=== PATIENT | female | born 1955 | race Caucasian/White ===

== ENCOUNTER 2017-03-17 11:53 | Emergency (ER) | payer BC, OTHER ==
--- NOTE | 2017-03-17 13:44 | DIAGNOSTIC IMAGING REPORT ---
PROCEDURE: CT HEAD WITHOUT CONTRAST INDICATION: PARESTHESIA RIGHT FACE TECHNIQUE: Axial CT images were acquired through the head. Coronal and sagittal reformations were created. COMPARISON: None. FINDINGS: Minimal cerebral cortical atrophy. A few subtle tiny patches of hypodensity in the right white matter tracts and left basal ganglia. No focal cortical volume loss. No intracranial hemorrhage or extraaxial fluid collections. Ventricles are normal in size, shape and position. There is no mass, mass effect or midline shift. The rock-white matter differentiation is normal. There is no edema. Minimal calcific atherosclerosis of the intracranial internal carotid arteries. The calvarium is intact. The paranasal sinuses and mastoid air cells are normally aerated. The extracranial soft tissues and orbits are normal. IMPRESSION: 1. A few tiny hypodensities in the white matter tracts and deep rock matter, age uncertain, potentially microvascular ischemic changes 2. No acute hemorrhage, edema, or mass effect. 3. Findings discussed with Taya Sebastian in the emergency room at [address] scans at this facility use dose modulation, iterative reconstruction, and/or weight-based dosing when appropriate to reduce radiation dose to as low as reasonably achievable.
--- NOTE | 2017-03-17 13:49 | ED CLINICAL REPORT ---
Clinical Report - Physicians/Mid Levels [facility] [address] [place] [address] 03/17/2017 11:53 Patient: KRISTAN CHAVES Time Seen: 12:08; initial patient contact. Arrived- By private vehicle. Historian- patient. HISTORY OF PRESENT ILLNESS Chief Complaint: PARESTHESIA. pt was at work at [employer] when she began having some tingling to the right face around 10 am. no other symptoms. This started today at 10 AM and is still present but is better now. The patient has had new onset of numbness of the right face (mild). She has had tingling. No impaired speech or swallowing, visual disturbance or recent fall. No difficulty walking. At its maximum deficit described as mild. When seen in the E.D., it was almost gone. No dizziness, altered mental status, seizure or blackouts. Usually is alert and oriented X3 and has normal mobility. Similar symptoms previously: None. Recent medical care: The patient was seen recently at another facility in a clinic. REVIEW OF SYSTEMS No fever, headache, head injury, chest pain or difficulty breathing. No cough or sputum production. All systems otherwise negative, except as recorded above. PAST HISTORY See nurses notes. Problems: Non-Hodgkin's lymphoma (clinical). Hypertension. Cancer. Medications: Losartan Potassium Oral 25 mg, daily. Tamoxifen Citrate Oral. Allergies: IV Contrast. Platelets. FAMILY HISTORY Negative. ADDITIONAL NOTES The nursing notes have been reviewed with agreement regarding the chief complaint, HPI, ROS, PMH and patient medications and allergies. PHYSICAL EXAM Vital Signs: 03/17/2017 11:59 BP: 139/62. HR: 75. RR: 16. O2 saturation: 99%. Temp: 98.4 F. Pain level now: 0/10. Have been reviewed as normal. Appearance: Alert. No acute distress. Head: Head atraumatic. Eyes: Pupils equal, round and reactive to light. No dysconjugate gaze. No nystagmus or nystagmus. ENT: Normal ENT inspection. Airway intact. Pharynx normal. Neck: Normal inspection. Neck supple. CVS: Normal heart rate and rhythm. Heart sounds normal. Pulses normal. Respiratory: No respiratory distress. Breath sounds normal. Abdomen: Soft and nontender. No organomegaly. Back: Normal inspection. No CVA tenderness. Skin: Skin warm and dry. Normal skin color. No rash. Normal skin turgor. Extremities: Extremities exhibit normal ROM. No lower extremity edema. Neuro: Awake. Alert. Alert. Oriented X 3 and 3. Mood/affect normal. Speech normal. No facial weakness. No cerebellar findings. No motor deficit. No sensory deficit. No sensory deficit. No pronator drift. Reflexes normal. (she appears to have a mild right sided tongue deviation on exam, without other focal facial weakness.). LABS, X-RAYS, AND EKG CT Head: (Name: Kristan Chaves : 1955 MR#: [id number] Ordering Provider: JARRELL OLIVER Exam(s): CT HEAD WITHOUT CONTRAST Date of Exam: 03/17/2017 __ PROCEDURE: CT HEAD WITHOUT CONTRAST INDICATION: PARESTHESIA RIGHT FACE TECHNIQUE: Axial CT images were acquired through the head. Coronal and sagittal reformations were created. COMPARISON: None. FINDINGS: Minimal cerebral cortical atrophy. A few subtle tiny patches of hypodensity in the right white matter tracts and left basal ganglia. No focal cortical volume loss. No intracranial hemorrhage or extraaxial fluid collections. Ventricles are normal in size, shape and position. There is no mass, mass effect or midline shift. The rock-white matter differentiation is normal. There is no edema. Minimal calcific atherosclerosis of the intracranial internal carotid arteries. The calvarium is intact. The paranasal sinuses and mastoid air cells are normally aerated. The extracranial soft tissues and orbits are normal. IMPRESSION: 1. A few tiny hypodensities in the white matter tracts and deep rock matter, age uncertain, potentially microvascular ischemic changes 2. No acute hemorrhage, edema, or mass effect. 3. Findings discussed with Jarrell Oliver in the emergency room at [address] scans at this facility use dose modulation, iterative reconstruction, and/or weight-based dosing when appropriate to reduce radiation dose to as low as reasonably achievable. Electronically Final signed by:Chela Carter MD 03/17/2017 1:44:34 PM Technologist: KENDY). Head CT performed without contrast. The study was independently viewed by me, interpreted by the radiologist and discussed with the radiologist. Prior studies were not available for comparison. Interpretation time: 13:45. Laboratory Tests: CBC w Diff: (FATOUMATA: 03/17/2017 12:05) ( MsgRcvd 03/17/2017 12:34) Final results Test Result Flag Units (Reference) WHITE BLOOD COUNT 4.3 L K/uL (4.5-11.5) RED BLOOD COUNT 3.79 L M/uL (4.00-5.20) HEMOGLOBIN 12.1 gm/dL (12.0-16.0) HEMATOCRIT 36.0 % (36.0-46.0) MEAN CELL VOLUME 95 fL (80-100) MEAN CORPUSCULAR HGB 32 pg (26-34) MEAN CORPUSCULAR HGB CONC 34 g/dL (31-37) RED CELL DISTRIBUTION WIDTH 13.9 % (11.6-14.8) PLATELET COUNT 154 K/uL (150-400) NEUTROPHIL % 48.8 L % (50-75) LYMPH % 44.2 H % (25-40) MONO % 5.9 % (3-14) EOSINOPHIL % 0.8 % (0-4) BASOPHIL % 0.3 % (0-2) PT with INR: (FATOUMATA: 03/17/2017 12:05) ( MsgRcvd 03/17/2017 12:35) Final results Test Result Flag Units (Reference) INR 1.0 (0.8-1.2) Low Intensity Therapy: INR 1.5-2.0 PT range 18.5-23.1Mod.Intensity Therapy: INR 2.0-3.0 PT range 23.1-31.5High Intensity Therapy: INR 2.5-3.5 PT range 27.4-35.5High Intensity Therapy 2: INR 3.0-4.0 PT range 31.5-39.3 CMP: (FATOUMATA: 03/17/2017 12:05) ( MsgRcvd 03/17/2017 12:51) Final results Test Result Flag Units (Reference) GLUCOSE 118 H mg/dL (70-110) BUN 17 mg/dL (7-18) CREATININE 0.7 mg/dL (0.6-1.3) Estimated GFR >60 mL/min Estimated GFR- >60 mL/min Note: Persistent reduction over 3 months in eGFR<60 mL/min/1.73 m2 defines CKD. Patients with eGFR values>=60 mL/min/1.73 m2 may also have CKD if evidence ofpersistent proteinuria. Additional information may be foundat [email or web address].org. SODIUM 139 mmol/L (136-145) POTASSIUM 3.8 mmol/L (3.5-5.1) CHLORIDE 99 mmol/L (98-107) CARBON DIOXIDE 33 H mmol/L (21-32) CALCIUM 8.7 mg/dL (8.5-10.1) TOTAL PROTEIN 7.4 g/dL (6.4-8.2) ALBUMIN 3.7 g/dL (3.3-5.0) BILIRUBIN, TOTAL 0.5 mg/dL (0.0-1.0) ALKALINE PHOSPHATASE 47 U/L (46-116) AST (SGOT) 28 U/L (15-37) ALT (SGPT) 28 U/L (12-78) . PROGRESS AND PROCEDURES Course of Care: Patient is stable. Physical exam findings are improved. Symptoms better. 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 INSTRUCTIONS No strenuous activity for two days until better. Return to work in three days when better. Do not work today. No dietary restrictions. Do not smoke. No alcohol. (CT scan was essentially normal and didn't show any acute changes or evidence of stroke. TIA is possible.). Warnings: Further evaluation is necessary in order to conduct further tests. It is very important to follow up with a physician. GENERAL WARNINGS: Return or contact your physician immediately if your condition worsens or changes unexpectedly, if not improving as expected, or if other problems arise. Your Current Medications: CONTINUE TAKING THE FOLLOWING MEDICATIONS: Losartan Potassium Oral : 25 mg daily. Tamoxifen Citrate Oral. OTC Medications: Aspirin 81 mg (available over the counter): take 1-2 orally every 24 hours. Dispense thirty (30). No refills. Follow-up: Follow up with your doctor Sunday if not well. Call for an appointment. Reason for referral: TIA, right facial paresthesia. Follow up with a neurologist- as recommended by your primary care physician- if not better. Reason for referral: right facial paresthesia. Understanding of the discharge instructions verbalized by patient. (Electronically signed by Jarrell Oliver PA-C 03/18/2017 0:34)
--- NOTE | 2017-03-17 13:49 | ED ORDER SUMMARY ---
..... Patient: ASAEL GALICIA OrderSheet [facility] VisitID: [id number] [address] [place] [address] 61y, F Registration Date/Time: 03/17/2017 ORDER SHEET Weight: 51.2 kg (stated) Allergies: IV Contrast, Platelets GENERAL ORDERS: CT Head wo Cont (paresthesia right face with noted tongue deviation towards the right side since 10 am.) Urgent (12:03/17/2017 ABlanchette PA-C) (Ack 12:35 RKaruga) (14:21 Unique R.N.) CBC w Diff Urgent (12:03/17/2017 ABlanchette PA-C) (Ack 12:35 RKaruga) (12:35 Unique R.N.) CMP Urgent (12:03/17/2017 ABlanchette PA-C) (Ack 12:35 RKaruga) (12:35 Unique R.N.) PT with INR Urgent (12:03/17/2017 ABlanchette PA-C) (Ack 12:35 RKaruga) (12:35 Unique R.N.) MEDICATION ORDERS: IV FLUIDS: ORDER SHEET NOTES: [Electronically signed by Rebecca Hernandez R.N. (14:03/17/2017)] [Electronically signed by Taya Sebastian PA-C (00:34 03/18/2017)] [Electronically locked/signed by Rebecca Hernandez R.N. (14:03/17/2017)]
--- NOTE | 2017-03-17 13:49 | ED NURSING NOTES ---
Clinical Report - Nurses [facility] [place] [place] [address] 03/17/2017 11:53 [id number] TRIAGE <<STRICKEN ENTRY-- Triage time 11:59. Acuity: LEVEL 3. Chief Complaint: NUMBNESS and (left half of lips, up into cheek). Alert. No acute distress. QUINCY COMA SCORE: [place] Coma Scale: 15- eyes open spontaneously (4); best verbal response- oriented x 4 (5); best motor response- obeys commands (6). --12:06 Rebecca Hernandez R.N. --END STRIKE>> Correction --12:20 Rebecca Hernandez R.N. 11:59 03/17/17. BP: 139/62. HR: 75. RR: 16. O2 saturation: 99% on room air. Temp: 98.4 F (oral). Pain level now: 0/10. --12:06 Rebecca Hernandez R.N. Triage time 11:59. Acuity: LEVEL 3. Chief Complaint: NUMBNESS and (right half of lips, up into cheek). Alert. No acute distress. QUINCY COMA SCORE: [place] Coma Scale: 15- eyes open spontaneously (4); best verbal response- oriented x 4 (5); best motor response- obeys commands (6). --12:21 Rebecca Hernandez R.N. Weight: 51.2 kg stated. Height/Length: 65 inches Per Patient. BMI: 18.8. --12:02 Rebecca Hernandez R.N. Medications Losartan Potassium Oral 25 mg, daily. Tamoxifen Citrate Oral. --12:00 Rebecca Hernandez R.N. Medication/allergy information source: the patient. --12:06 Rebecca Hernandez R.N. Allergies IV Contrast. --12:00 Rebecca Hernandez R.N. Platelets. --12:00 Rebecca Hernandez R.N. History Arrived by private vehicle. Historian: patient. Unaccompanied. Primary physician (Josue). This started about 1000. ( slowly resolving). PAST MEDICAL HX: The patient is post-menopausal. SOCIAL HX: Former smoker. Occasional alcohol use; consumes wine. No drug use. FALL RISK ASSESSMENT: Fall risk assessment completed. No fall risk identified. FUNCTIONAL ASSESSMENT: Functional assessment: no impairments noted. LEARNING NEEDS ASSESSMENT: The learning needs assessment revealed no barriers. --12:06 Rebecca Hernandez R.N. 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 --12:10 Rebecca Hernandez R.N. PROBLEMS: Non-Hodgkin's lymphoma (clinical). Hypertension. Cancer. --12:02 Rebecca Hernandez R.N. ADDITIONAL SURGERIES: Lumpectomy of breast. --12:02 Rebecca Hernandez R.N. Assessment GENERAL / NEURO / PSYCH: Alert. Oriented X 4. Appears in no acute distress. Patient appears calm and cooperative. RESPIRATORY: Respirations not labored. SKIN: Skin is warm and dry. --12:06 Rebecca Hernandez R.N. Interventions ID and allergy band on patient. To treatment room. --12:06 Rebecca Hernandez R.N. PHYSICAL ASSESSMENT 12:03/17/17. Ambulatory to room. Patient gowned. Baseline functional status: usually alert, oriented x4 and cooperative. Verbal response: usually clear and appropriate. Motor response: usually steady gait and moves all extremities equally GENERAL / NEURO / PSYCH: Awake. Oriented X 4. Alert. Appears in no acute distress. Speech normal. Mood/affect normal. Moves all extremities equally. RESPIRATORY: Respirations not labored. SKIN: Skin is warm and dry. --12:07 Rebecca Hernandez R.N. NURSING PROGRESS NOTES 12:03/17/2017 Site #1 started via IV in the left antecubital space with an 20g angiocath, with aseptic technique and good blood return; one attempt. Blood drawn: rainbow set. Labeled in the presence of the patient and sent to the lab. Saline lock flushed with 10 mL saline (by Asia FERNANDO). --12:08 Rebecca Hernandez R.N. 12:03/17/17. radiation monitor, pulse oximeter and NIBP monitor placed on patient. Patient gowned. Head of bed elevated. Call light placed in reach. Side rails up x 1. Bed placed in lowest position. Brakes of bed on. --12:08 Rebecca Hernandez R.N. 12:10 03/17/2017 Site #1 removed. Catheter intact. Bandaid applied (site infiltrated). --12:10 Rebecca Hernandez R.N. 12:21 03/17/2017 Site #2 started via IV in the right antecubital space with an 20g angiocath, with aseptic technique and good blood return; one attempt. Saline lock flushed with 10 mL saline. --12:21 Rebecca Hernandez R.N. 12:26 03/17/17. Cardiac rhythm: sinus rhythm. The patient is resting quietly. --12:26 Rebecca Hernandez R.N. 12:25 03/17/17. BP: 139/53. HR: 75. RR: 18. O2 saturation: 99% on room air. Pain level now: 0/10. --12:26 Rebecca Hernandez R.N. Patient transported to [place] by stretcher with tech. ([id number]). --13:00 Rebecca Hernandez R.N. Patient returned from CT by stretcher with tech. --13:19 Rebecca Hernandez R.N. 13:19 03/17/17. BP: 123/50. HR: 71. RR: 18. O2 saturation: 98% on room air. Pain level now: 0/10. --13:20 Rebecca Hernandez R.N. 13:20 03/17/17. Cardiac rhythm: sinus rhythm. Reassessment after procedure. She is calm and resting quietly. Overall patient status is the same- she states feels the same (states the "numbness" is mostly just in right lower lip now). GENERAL / NEURO / PSYCH: Alert. Oriented X 4. Affect appears normal. RESPIRATORY: No respiratory distress. SKIN: Skin is warm and dry. --13:20 Rebecca Hernandez R.N. 14:00. Cardiac rhythm: sinus rhythm. The patient is calm and resting quietly. Overall patient status is improved- she states feels better. GENERAL / NEURO / PSYCH: Alert. Oriented X 4. Affect appears normal. RESPIRATORY: No respiratory distress. SKIN: Skin is warm and dry. --14:13 Rebecca Hernandez R.N. 14:00 03/17/2017 Site #2 removed upon discharge. Catheter intact. Bandaid applied. --14:13 Rebecca Hernadnez R.N. DISPOSITION / DISCHARGE Departure time: 1400. Condition at departure: improved and stable. No learning barriers present. Discharge instructions provided and reviewed with the patient. Reviewed medication(s). Prescription(s) given to the patient. Work note given. Patient verbalized understanding. Written instructions provided in Chinese. The patient was discharged home and unaccompanied at time of discharge. She left the Emergency Department ambulatory and via private vehicle. FALL RISK ASSESSMENT: Fall risk assessment completed. No fall risk identified. --14:12 Rebecca Hernandez R.N. 14:00 03/17/17. BP: 118/51. HR: 66. RR: 18. O2 saturation: 97% on room air. Pain level now: 0/10. --14:12 Rebecca Hernandez R.N. Locked/Released at 03/17/2017 14:21 by Rebecca Hernandez R.N.
--- NOTE | 2017-03-17 13:49 | ED NURSING NOTES ---
Clinical Report - Nurses [facility] [place] [address] 03/17/2017 11:53 [id number] <<[facility]ICKEN ENTRY-- Triage time 11:59. Acuity: LEVEL 3. Chief Complaint: NUMBNESS and (left half of lips, up into cheek). Alert. No acute distress. QUINCY COMA SCORE: [place] Coma Scale: 15- eyes open spontaneously (4); best verbal response- oriented x 4 (5); best motor response- obeys commands (6). --12:06 Rebecca Hernandez R.N. --END STRIKE>> Correction --12:20 Rebecca Hernandez R.N. 11:59 03/17/17. BP: 139/62. HR: 75. RR: 16. O2 saturation: 99% on room air. Temp: 98.4 F (oral). Pain level now: 0/10. --12:06 Rebecca Hernandez R.N. Triage time 11:59. Acuity: LEVEL 3. Chief Complaint: NUMBNESS and (right half of lips, up into cheek). Alert. No acute distress. QUINCY COMA SCORE: [place] Coma Scale: 15- eyes open spontaneously (4); best verbal response- oriented x 4 (5); best motor response- obeys commands (6). --12:21 Rebecca Hernandez R.N. Weight: 51.2 kg stated. Height/Length: 65 inches Per Patient. BMI: 18.8. --12:02 Rebecca Hernandez R.N. Medications Losartan Potassium Oral 25 mg, daily. Tamoxifen Citrate Oral. --12:00 Rebecca Hernandez R.N. Medication/allergy information source: the patient. --12:06 Rebecca Hernandez R.N. Allergies IV Contrast. --12:00 Rebecca Hernnadez R.N. Platelets. --12:00 Rebecca Hernandez R.N. History Arrived by private vehicle. Historian: patient. Unaccompanied. Primary physician (Josue). This started about 1000. ( slowly resolving). PAST MEDICAL HX: The patient is post-menopausal. SOCIAL HX: Former smoker. Occasional alcohol use; consumes wine. No drug use. FALL RISK ASSESSMENT: Fall risk assessment completed. No fall risk identified. FUNCTIONAL ASSESSMENT: Functional assessment: no impairments noted. LEARNING NEEDS ASSESSMENT: The learning needs assessment revealed no barriers. --12:06 Rebecca Hernandez R.N. 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 --12:10 Rebecca Hernandez R.N. PROBLEMS: Non-Hodgkin's lymphoma (clinical). Hypertension. Cancer. --12:02 Rebecca Hernandez R.N. ADDITIONAL SURGERIES: Lumpectomy of breast. --12:02 Rebecca Hernandez R.N. Assessment GENERAL / NEURO / PSYCH: Alert. Oriented X 4. Appears in no acute distress. Patient appears calm and cooperative. RESPIRATORY: Respirations not labored. SKIN: Skin is warm and dry. --12:06 Rebecca Hernandez R.N. Interventions ID and allergy band on patient. To treatment room. --12:06 Rebecca Hernandez R.N. PHYSICAL ASSESSMENT 12:03/17/17. Ambulatory to room. Patient gowned. Baseline functional status: usually alert, oriented x4 and cooperative. Verbal response: usually clear and appropriate. Motor response: usually steady gait and moves all extremities equally GENERAL / NEURO / PSYCH: Awake. Oriented X 4. Alert. Appears in no acute distress. Speech normal. Mood/affect normal. Moves all extremities equally. RESPIRATORY: Respirations not labored. SKIN: Skin is warm and dry. --12:07 Rebecca Hernandez R.N. NURSING PROGRESS NOTES 12:03/17/2017 Site #1 started via IV in the left antecubital space with an 20g angiocath, with aseptic technique and good blood return; one attempt. Blood drawn: rainbow set. Labeled in the presence of the patient and sent to the lab. Saline lock flushed with 10 mL saline (by Asia FERNANDO). --12:08 Rebecca Hernandez R.N. 12:03/17/17. monitoring analyst, pulse oximeter and NIBP monitor placed on patient. Patient gowned. Head of bed elevated. Call light placed in reach. Side rails up x 1. Bed placed in lowest position. Brakes of bed on. --12:08 Rebecca Hernandez R.N. 12:10 03/17/2017 Site #1 removed. Catheter intact. Bandaid applied (site infiltrated). --12:10 Rebecca Hernandez R.N. 12:21 03/17/2017 Site #2 started via IV in the right antecubital space with an 20g angiocath, with aseptic technique and good blood return; one attempt. Saline lock flushed with 10 mL saline. --12:21 Rebecca Hernandez R.N. 12:26 03/17/17. Cardiac rhythm: sinus rhythm. The patient is resting quietly. --12:26 Rebecca Hernandez R.N. 12:25 03/17/17. BP: 139/53. HR: 75. RR: 18. O2 saturation: 99% on room air. Pain level now: 0/10. --12:26 Rebecca Hernandez R.N. Patient transported to [place] by stretcher with tech. ([id number]). --13:00 Rebecca Hernandez R.N. Patient returned from CT by stretcher with tech. --13:19 Rebecca Hernandez R.N. 13:19 03/17/17. BP: 123/50. HR: 71. RR: 18. O2 saturation: 98% on room air. Pain level now: 0/10. --13:20 Rebecca Hernandez R.N. 13:20 03/17/17. Cardiac rhythm: sinus rhythm. Reassessment after procedure. She is calm and resting quietly. Overall patient status is the same- she states feels the same (states the "numbness" is mostly just in right lower lip now). GENERAL / NEURO / PSYCH: Alert. Oriented X 4. Affect appears normal. RESPIRATORY: No respiratory distress. SKIN: Skin is warm and dry. --13:20 Rebecca Hernandez R.N. 14:00. Cardiac rhythm: sinus rhythm. The patient is calm and resting quietly. Overall patient status is improved- she states feels better. GENERAL / NEURO / PSYCH: Alert. Oriented X 4. Affect appears normal. RESPIRATORY: No respiratory distress. SKIN: Skin is warm and dry. --14:13 Rebecca Hernandez R.N. 14:00 03/17/2017 Site #2 removed upon discharge. Catheter intact. Bandaid applied. --14:13 Rebecca Hernandez R.N. DISPOSITION / DISCHARGE Departure time: 1400. Condition at departure: improved and stable. No learning barriers present. Discharge instructions provided and reviewed with the patient. Reviewed medication(s). Prescription(s) given to the patient. Work note given. Patient verbalized understanding. Written instructions provided in Colombian. The patient was discharged home and unaccompanied at time of discharge. She left the Emergency Department ambulatory and via private vehicle. FALL RISK ASSESSMENT: Fall risk assessment completed. No fall risk identified. --14:12 Rebecca Hernandez R.N. 14:00 03/17/17. BP: 118/51. HR: 66. RR: 18. O2 saturation: 97% on room air. Pain level now: 0/10. --14:12 Rebecca Hernandez R.N. Locked/Released at 03/17/2017 14:21 by Rebecca Hernandez R.N.
--- NOTE | 2017-03-17 13:49 | ED ORDER SUMMARY ---
..... Patient: ASAEL GALICIA OrderSheet [facility] VisitID: [id number] [address] [place] [address] 61y, F Registration Date/Time: 03/17/2017 ORDER SHEET Weight: 51.2 kg (stated) Allergies: IV Contrast, Platelets GENERAL ORDERS: CT Head wo Cont (paresthesia right face with noted tongue deviation towards the right side since 10 am.) Urgent (12:03/17/2017 ABlanchette PA-C) (Ack 12:35 RKaruga) (14:21 Unique R.N.) CBC w Diff Urgent (12:03/17/2017 ABlanchette PA-C) (Ack 12:35 RKaruga) (12:35 Unique R.N.) CMP Urgent (12:03/17/2017 ABlanchette PA-C) (Ack 12:35 RKaruga) (12:35 Unique R.N.) PT with INR Urgent (12:03/17/2017 ABlanchette PA-C) (Ack 12:35 RKaruga) (12:35 Unique R.N.) MEDICATION ORDERS: IV FLUIDS: ORDER SHEET NOTES: [Electronically signed by Rebecca Hernandez R.N. (14:03/17/2017)] [Electronically signed by Taya Sebastian PA-C (00:34 03/18/2017)] [Electronically locked/signed by Rebecca Hernandez R.N. (14:03/17/2017)]
--- NOTE | 2017-03-18 00:34 | ED DISCHARGE INSTRUCTIONS ---
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 INSTRUCTIONS No strenuous activity for two days until better. Return to work in three days when better. Do not work today. No dietary restrictions. Do not smoke. No alcohol. (CT scan was essentially normal and didn't show any acute changes or evidence of stroke. TIA is possible.). Warnings: Further evaluation is necessary in order to conduct further tests. It is very important to follow up with a physician. GENERAL WARNINGS: Return or contact your physician immediately if your condition worsens or changes unexpectedly, if not improving as expected, or if other problems arise. Your Current Medications: CONTINUE TAKING THE FOLLOWING MEDICATIONS: Losartan Potassium Oral : 25 mg daily. Tamoxifen Citrate Oral. OTC Medications: Aspirin 81 mg (available over the counter): take 1-2 orally every 24 hours. Dispense thirty (30). No refills. Follow-up: Follow up with your doctor Sunday if not well. Call for an appointment. Reason for referral: TIA, right facial paresthesia. Follow up with a neurologist- as recommended by your primary care physician- if not better. Reason for referral: right facial paresthesia. Understanding of the discharge instructions verbalized by patient. ADDITIONAL INFORMATION Paraesthesias Paraesthesia refers to a burning or prickling sensation that is sometimes felt in the hands, arms, legs or feet. It can also occur in other parts of the body. It can also feel like tingling or numbness, skin crawling or itching.The sensation is usually painless. Most people have experienced pins and needles. This feeling happens when legs have been crossed for too long and pressure is placed on a nerve. This is a temporary paraesthesia. It quickly goes away once the pressure is relieved. There are many possible causes for chronic paraesthesias. These include such disorders as stroke, herniated disk (pressing on a nerve), trapped nerve in the shoulder, elbow or wrist (such as carpal tunnel syndrome), vitamin deficiencies or even certain medicines. Laboratory tests are needed to make an accurate diagnosis. These tests may include blood tests, X-ray, CT (computerized tomography) scan or a muscle test (electromyography).Depending on the cause, treatment may include physical therapy. Home Care: Do not make any changes to your medicines without advice from your doctor. If vitamins have been prescribed, remember to take them daily at the recommended dose. Because of a decrease in feeling, a numb hand or foot may be more prone to injury. Take care to protect these areas from cuts, bumps, bruises, dan or other injury. Keep your nails trimmed and wash your hands and feet often. Wear shoes that fit well to avoid pressure points, blisters and ulcers. Look at your hands and feet carefully (including the soles of your feet and between your toes) at least once a week and notify your doctor of any open wounds or signs of infection. Follow Up with your doctor or as advised by our staff. You may need further testing to determine the exact cause of your paraesthesia. [NOTE: If blood tests, X-ray, CT scan or electromyography were done, specialists will review them. You will be notified of any new findings that may affect your care.] Get Prompt Medical Attention if any of the following occur: Numbness or weakness of the face, one arm or one leg Slurred speech, confusion, trouble speaking, walking or seeing Severe headache, fainting spell, dizziness or seizure Chest, arm, neck or upper back pain Loss of bladder or bowel control Open wound with redness, swelling or pus Aspirin Oral tablet What is this medicine? ASPIRIN ( pir in) is a pain reliever. It is used to treat mild pain and fever. This medicine is also used as directed by a doctor to prevent and to treat heart attacks, to prevent strokes, and to treat arthritis or inflammation. How should I use this medicine? Take this medicine by mouth with a glass of water. Follow the directions on the package or prescription label. You can take this medicine with or without food. If it upsets your stomach, take it with food. Do not take your medicine more often than directed. Talk to your [facility] home [facility] regarding the use of this medicine in children. While this drug may be prescribed for children as young as 12 years of age for selected conditions, precautions do apply. Children and teenagers should not use this medicine to treat chicken pox or flu symptoms unless directed by a doctor. Patients over 65 years old may have a stronger reaction and need a smaller dose. What side effects may I notice from receiving this medicine? Side effects that you should report to your doctor or health career development associate as soon as possible: allergic reactions like skin rash, itching or hives, swelling of the face, lips, or tongue breathing problems changes in hearing, ringing in the ears confusion general ill feeling or flu-like symptoms pain on swallowing redness, blistering, peeling or loosening of the skin, including inside the mouth or nose signs and symptoms of bleeding such as bloody or black, tarry stools; red or dark-brown urine; spitting up blood or brown material that looks like coffee grounds; red spots on the skin; unusual bruising or bleeding from the eye, gums, or nose trouble passing urine or change in the amount of urine unusually weak or tired yellowing of the eyes or skin Side effects that usually do not require medical attention (report to your doctor or health career development associate if they continue or are bothersome): diarrhea or constipation nausea, vomiting stomach gas, heartburn What may interact with this medicine? Do not take this medicine with any of the following medications: cidofovir ketorolac probenecid This medicine may also interact with the following medications: alcohol alendronate bismuth subsalicylate flavocoxid herbal supplements like feverfew, garlic, ej, ginkgo biloba, horse chestnut medicines for diabetes or glaucoma like acetazolamide, methazolamide medicines for gout medicines that treat or prevent blood clots like enoxaparin, heparin, ticlopidine, warfarin other aspirin and aspirin-like medicines NSAIDs, medicines for pain and inflammation, like ibuprofen or naproxen pemetrexed sulfinpyrazone varicella live vaccine What if I miss a dose? If you are taking this medicine on a regular schedule and miss a dose, take it as soon as you can. If it is almost time for your next dose, take only that dose. Do not take double or extra doses. Where should I keep my medicine? Keep out of the reach of children. Store at room temperature between 15 and 30 degrees C (59 and 86 degrees F). Protect from heat and moisture. Do not use this medicine if it has a strong vinegar smell. Throw away any unused medicine after the expiration date. What should I tell my health care provider before I take this medicine? They need to know if you have any of these conditions: anemia asthma bleeding problems child with chickenpox, the flu, or other viral infection diabetes gout if you frequently drink alcohol containing drinks kidney disease liver disease low level of vitamin K lupus smoke tobacco stomach ulcers or other problems an unusual or allergic reaction to aspirin, tartrazine dye, other medicines, dyes, or preservatives or trying to get breast-feeding What should I watch for while using this medicine? If you are treating yourself for pain, tell your doctor or health career development associate if the pain lasts more than 10 days, if it gets worse, or if there is a new or different kind of pain. Tell your doctor if you see redness or swelling. Also, check with your doctor if you have a fever that lasts for more than 3 days. Only take this medicine to prevent heart attacks or blood clotting if prescribed by your doctor or health career development associate. Do not take aspirin or aspirin-like medicines with this medicine. Too much aspirin can be dangerous. Always read the labels carefully. This medicine can irritate your stomach or cause bleeding problems. Do not smoke cigarettes or drink alcohol while taking this medicine. Do not lie down for 30 minutes after taking this medicine to prevent irritation to your throat. If you are scheduled for any medical or dental procedure, tell your healthcare provider that you are taking this medicine. You may need to stop taking this medicine before the procedure. You have been given the following additional information: Paraesthesias Aspirin Oral tablet No strenuous activity for two days until better. Return to work in three days when better. Do not work today. (Electronically signed by Taya Sebastian PA-C 03/18/2017 0:34)
--- NOTE | 2017-03-18 00:34 | ED MED RECONCILIATION SUMMARY ---
Patient: ASAEL GALICIA Medication Reconciliation Report [facility] VisitID: [id number] [address] [place] [address] 61y, F Registration Date/Time: 03/17/2017 Weight: 51.2 kg Height/Length: 65 in. BMI: 18.8 ALLERGIES: IV Contrast, Platelets The patient's Home Medications are listed below: CONTINUE TAKING THE FOLLOWING MEDICATIONS: Losartan Potassium Oral 25 mg, daily Tamoxifen Citrate Oral The source(s) of the original Home Medication information: patient The following Medications were given to the patient in the Emergency Department: None. The following Medications were prescribed to the patient: Aspirin 81 mg (available over the counter): take 1-2 orally every 24 hours. Dispense thirty (30). No refills. -- Taya Sebastian PA-C
--- NOTE | 2017-03-18 00:34 | ED MAR SUMMARY ---
..... Medication Administration Record [facility] [address] [place], [place] [id number] Patient: ASAEL GALICIA Visit ID: [id number] 61y, F Weight: 51.2 kg Height/Length: 65 in BMI: 18.8 ALLERGIES: Platelets, IV Contrast
--- NOTE | 2017-03-18 00:34 | ED MED RECONCILIATION SUMMARY ---
Patient: ASAEL GALICIA Medication Reconciliation Report [facility] VisitID: [id number] [address] [place] [address] 61y, F Registration Date/Time: 03/17/2017 Weight: 51.2 kg Height/Length: 65 in. BMI: 18.8 ALLERGIES: IV Contrast, Platelets The patient's Home Medications are listed below: CONTINUE TAKING THE FOLLOWING MEDICATIONS: Losartan Potassium Oral 25 mg, daily Tamoxifen Citrate Oral The source(s) of the original Home Medication information: patient The following Medications were given to the patient in the Emergency Department: None. The following Medications were prescribed to the patient: Aspirin 81 mg (available over the counter): take 1-2 orally every 24 hours. Dispense thirty (30). No refills. -- Taya Sebastian PA-C
--- NOTE | 2017-03-18 00:34 | ED MAR SUMMARY ---
..... Medication Administration Record [facility] [address] [place], [place] [id number] Patient: ASAEL GALICIA Visit ID: [id number] 61y, F Weight: 51.2 kg Height/Length: 65 in BMI: 18.8 ALLERGIES: Platelets, IV Contrast
== END 2017-03-17 14:00 | disposition home or self-care (01) ==
LOC: ED SRH 11:53
DX: R20.2 Paresthesia of skin (principal); G51.0 Bell's palsy; I10 Essential (primary) hypertension; Z79.899 Other long term (current) drug therapy; Z91.041 Radiographic dye allergy status
CPT/HCPCS: 90100; 94060; 95059